=== PATIENT | female | born 1965 | race Caucasian/White ===

== ENCOUNTER → 2019-01-26 | Outpatient (CLI) | payer BC ==
--- NOTE | 2019-01-26 09:42 | CT ---
EXAMINATION TYPE: CT abdomen pelvis w con DATE OF EXAM: 01/26/2019 COMPARISON: NONE HISTORY: 53-year-old female LLQ pain and lump TECHNIQUE: Contiguous axial scanning of the abdomen and pelvis following administration of 100 ml Iso kaylyn 300 IV contrast. Delayed images through the kidneys and coronal/sagittal reconstructions perform ed. CT DLP: 872.1 mGycm Automated exposure control for dose reduction was used. FINDINGS: Heart normal size without pericardial effusion. Some mild strandy atelectasis in the lower lungs. Liver borderline enlarged at 17.6 cm. There is a lesion within segment 2 of the left lower lobe that shows nodular enhancement measuring 2.2 cm. Delayed images show filling with enhancement following ga dolinium blood pool. Small amount of focal fat along the anterior falciform ligament. No biliary ductal dilatation. Portal venous system is patent. Gallbladder, adrenal glands, and pancreas appear within normal limits. Calcified granulomas within the spleen. Tiny inferior splenule. Extra renal pelvis on the left. Duplex right renal collecting systems. 2 separate ureters remained to the mid ureteric level. Unable to determine if these join to gather or have separate insertions into the bladder. No dilated small bowel, free fluid, or free air. No mesenteric or retroperitoneal lymphadenopathy. Normal appendix. Oral contrast progressed to the rectum. Sigmoid diverticulosis. No pericolonic infla mmatory change. Bladder partially distended. Uterus is anteverted. Both ovaries are visualized. No abnormal fluid col lection in the pelvis or pelvic lymphadenopathy. Bones: Degenerative change at the left greater than right SI joints. Degenerative disc disease L5-S1. IMPRESSION: 1. Sigmoid diverticulosis without evidence for acute diverticulitis. 2. A 2.2 cm lesion within segment 2 left liver lobe shows peripheral nodular enhancement and fill in on delayed kidney images. Findings most compatible with a benign hemangioma. 3. Incidental duplex right renal collecting system. Unable to determine partial or complete duplicati on.
== END | disposition home or self-care (01) ==
LOC: RADCTMAIN 05:58
PROVIDERS: ATTEND Family Medicine
DX: K57.30 Diverticulosis of large intestine without perforation or abscess without bleeding (principal); K76.89 Other specified diseases of liver; K76.9 Liver disease, unspecified
CPT/HCPCS: 74177; Q9967 ×2

== ENCOUNTER → 2019-04-12 | Outpatient (CLI) | payer BC ==
--- NOTE | 2019-04-12 16:22 | US ---
EXAMINATION TYPE: US pelvic complete DATE OF EXAM: 04/12/2019 COMPARISON: NONE CLINICAL HISTORY: 53-year-old female N94.10 Unspecified dyspareunia. TECHNIQUE: Transabdominal (TA). Date of LMP: 4-5 years prior Patient not an any HRT. FINDINGS: EXAM MEASUREMENTS: Uterus: 6.9 x 3.2 x 3.5 cm Endometrial Stripe: 0.4 cm Right Ovary: 1.5 x 0.9 x 1.0 cm Left Ovary: 1.8 x 1.0 x 1.0 cm 1. Uterus: Anteverted, wnl 2. Endometrium: wnl 3. Right Ovary: wnl 4. Left Ovary: wnl 5. Bilateral Adnexa: wnl 6. Posterior cul-de-sac: wnl IMPRESSION: Unremarkable transabdominal sonographic examination of the pelvis.
== END | disposition home or self-care (01) ==
LOC: RADUSWWP 14:00
PROVIDERS: ATTEND Obstetrics & Gynecology
DX: N94.10 Unspecified dyspareunia (principal)
CPT/HCPCS: 76856

== ENCOUNTER → 2019-04-14 | Outpatient (CLI) | payer BC ==
--- NOTE | 2019-04-14 11:32 | XR ---
EXAMINATION TYPE: XR lumbar spine 2 or 3V DATE OF EXAM: 04/14/2019 COMPARISON: None HISTORY: Lumbar spine pain TECHNIQUE: Three-view lumbar spine FINDINGS: There 5 lumbar-type vertebral bodies. The pedicles are intact. There is loss of disc height L5-S1. Remaining disc heights are preserved. Vertebral body heights are preserved. Alignment is pres erved. IMPRESSION: 1. Degenerative disc changes L5-S1.
== END ==
LOC: RADXRMAIN 11:07
PROVIDERS: ATTEND Family Medicine
DX: M47.817 Spondylosis without myelopathy or radiculopathy, lumbosacral region (principal)
CPT/HCPCS: 72100

== ENCOUNTER 2021-03-23 12:17 | Emergency (ER) | payer BC ==
[2021-03-23 12:35] VITALS: TEMP 97.8
[2021-03-23] MEDS ORDERED: ASPIRIN 81 MG PO STA (12:52)
--- NOTE | 2021-03-23 13:05 | ED ---
General Adult HPI - General Chief complaint: Chest Pain Stated complaint: High BP, chest pain Time Seen by Provider: 03/23/21 12:40 Source: patient, RN notes reviewed, old records reviewed Mode of arrival: wheelchair Limitations: physical limitation - History of Present Illness Initial comments: Patient is a 55-year-old female with past medical history remarkable for hypertension, currently on hormonal therapy for menopausal presents emergency Department complaining of sudden onset chest pain at approximately 11 AM today. Is currently approximately 12:40pm. I evaluated her when she was placed in a room. She states the pain was sharp, started substernally and radiated across left side of her chest. Last for approximately 10-15 minutes while she was sitting and working a computer. She states it resolved on its own. No known palliative or provocative factors. States she felt nauseous at the time as well and checked her blood pressure and found it was elevated. That is since improved. Only complaints is endorsing shortness of breath that is been getting slightly worse and over the last few weeks to months. She notices shortness of breath on exertion. Denies any associated chest pain with it. States she did have this chest pain previously she believes last year when she was worked up and cardiac workup at that time was negative. She denies any fevers, chills, cough. Patient was vaccinated and booster for Covid 19. 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 Presents over concern for chest pain. - Related Data Home Medications Medication Instructions Recorded Confirmed Aspirin EC [Ecotrin Low Dose] 81 mg PO DAILY 03/23/21 03/23/21 Calcium Carbonate [Calcium] 600 mg PO DAILY 03/23/21 03/23/21 Cholecalciferol [Vitamin D3 (125 125 mcg PO DAILY 03/23/21 03/23/21 Mcg = 5000 Iu)] Multivitamins, Thera [Multivitamin 1 tab PO DAILY 03/23/21 03/23/21 (formulary)] Testosterone 0.25mg/Biest 1 kelly SL DAILY 03/23/21 03/23/21 1.25mg/Progesterone 20mg Kelly Allergies Allergy/AdvReac Type Severity Reaction Status Date / Time No Known Allergies Allergy Verified 03/23/21 13:59 Review of Systems ROS Statement: Those systems with pertinent positive or pertinent negative responses have been documented in the HPI. Review of Systems: CONST: Denies fever EYES: Denies blurry vision ENT: Denies nasal congestion C/V: Endorses result chest pain. RESP: Endorses somewhat chronic exertional shortness of breath GI: Denies abdominal pain : Denies dysuria SKIN: Denies rash. MSK: Denies joint pain. NEURO: Denies headache ROS Other: All systems not noted in ROS Statement are negative. Past Medical History Additional Past Medical History / Comment(s): hormone therapy for menopause History of Any Multi-Drug Resistant Organisms: None Reported Past Surgical History: Section Past Psychological History: No Psychological Hx Reported Smoking Status: Never smoker Past Alcohol Use History: Occasional Past Drug Use History: None Reported General Exam - General Exam Comments Initial Comments: General: Appears in no acute distress. HEAD: Normal with no signs of head trauma. EYES: PERRLA, EOMI, conjunctiva normal, no discharge. ENT: Hearing grossly intact, normal oropharynx. RESPIRATORY: Clear breath sounds bilaterally. No wheezes, rales, or rhonchi. C/V: Regular rate and rhythm. S1 and S2 auscultated, no edema, peripheral pulses 2+ and intact throughout ABD: Abd is soft, nontender, nondistended EXT: Normal range of motion, no obvious deformity SKIN: No rashes or lesions observed on exposed skin. NEURO: Alert and oriented 4. Limitations: physical limitation Course Vital Signs 03/23/21 12:32 Temperature 97.8 F Pulse Rate 76 Respiratory 18 Rate Blood Pressure 158/93 O2 Sat by Pulse 98 Oximetry Medical Decision Making - Medical Decision Making Based on the patient's presentation and physical exam, I'm concerned for acute cardiopulmonary etiology for her current chest pain. Therefore we will obtain cardiac workup including troponin, BNP and basic labs. EKG and chest x-ray will also be obtained. She'll be given an aspirin. Chest pain is currently resolved. We will obtain a screening d-dimer she is on hormonal therapy with SOB and Chest pain. Patient does not PERC out, well's score for PE is low at 0. EKG showed no signs of acute ischemia. Chest x-ray showed no acute cardiopulmonary process. Laboratory studies were remarkable for a d-dimer within normal limits at 0.53, negative troponin. Remainder of the labs are unremarkable. On reevaluation, patient is asymptomatic. I did discuss with her admission versus discharge home and she would like to go home if possible. As the chest pain started within the last 3 hours, we will hold the patient the emergency department and obtained a repeat troponin 3 hours after the initial. She was in agreement this plan. Repeat troponin is within normal limits. Vision remains symptomatic. Vital signs remained within normal limits and stable. She'll be discharged home at this time. She was in agreement this plan. Recommended follow-up with cardiology as well as her PCP. She was in agreement this plan. Heart score is low at 2. I instructed the patient to follow up with their PCP in the next 3 days. I explained that the patient should return to the emergency department if they experience any worsening symptoms. Strict return precautions were discussed with the patient. The patient expressed understanding of these instructions. I answered all questions that the patient had. The patient was discharged home in good condition with their prescriptions and follow up information. - Lab Data Result diagrams: 03/23/21 13:04 03/23/21 13:04 Lab Results 03/23/21 03/23/21 03/23/21 Range/Units 13:04 13:04 13:04 WBC 8.1 (3.8-10.6) k/uL RBC 4.60 (3.80-5.40) m/uL Hgb 14.4 (11.4-16.0) gm/dL Hct 42.5 (34.0-46.0) % MCV 92.2 (80.0-100.0) fL MCH 31.2 (25.0-35.0) pg MCHC 33.9 (31.0-37.0) g/dL RDW 12.8 (11.5-15.5) % Plt Count 369 (150-450) k/uL MPV 6.7 Neutrophils % 73 % Lymphocytes % 19 % Monocytes % 4 % Eosinophils % 1 % Basophils % 0 % Neutrophils # 5.9 (1.3-7.7) k/uL Lymphocytes # 1.6 (1.0-4.8) k/uL Monocytes # 0.3 (0-1.0) k/uL Eosinophils # 0.1 (0-0.7) k/uL Basophils # 0.0 (0-0.2) k/uL PT 11.1 (9.0-12.0) sec INR 1.0 (<1.2) APTT 26.0 (22.0-30.0) sec D-Dimer 0.53 (<0.60) mg/L FEU Sodium 137 (137-145) mmol/L Potassium 4.0 (3.5-5.1) mmol/L Chloride 101 (98-107) mmol/L Carbon Dioxide 27 (22-30) mmol/L Anion Gap 9 mmol/L BUN 17 (7-17) mg/dL Creatinine 0.75 (0.52-1.04) mg/dL Est GFR (CKD-EPI)AfAm >90 (>60 ml/min/1.73 sqM) Est GFR (CKD-EPI)NonAf >90 (>60 ml/min/1.73 sqM) Glucose 88 (74-99) mg/dL Calcium 10.2 (8.4-10.2) mg/dL Magnesium 2.1 (1.6-2.3) mg/dL Total Bilirubin 0.7 (0.2-1.3) mg/dL AST 16 (14-36) U/L ALT 22 (4-34) U/L Alkaline Phosphatase 74 (38-126) U/L Troponin I (0.000-0.034) ng/mL NT-Pro-B Natriuret Pep pg/mL Total Protein 7.9 (6.3-8.2) g/dL Albumin 4.8 (3.5-5.0) g/dL 03/23/21 03/23/21 03/23/21 Range/Units 13:04 13:04 16:40 WBC (3.8-10.6) k/uL RBC (3.80-5.40) m/uL Hgb (11.4-16.0) gm/dL Hct (34.0-46.0) % MCV (80.0-100.0) fL MCH (25.0-35.0) pg MCHC (31.0-37.0) g/dL RDW (11.5-15.5) % Plt Count (150-450) k/uL MPV Neutrophils % % Lymphocytes % % Monocytes % % Eosinophils % % Basophils % % Neutrophils # (1.3-7.7) k/uL Lymphocytes # (1.0-4.8) k/uL Monocytes # (0-1.0) k/uL Eosinophils # (0-0.7) k/uL Basophils # (0-0.2) k/uL PT (9.0-12.0) sec INR (<1.2) APTT (22.0-30.0) sec D-Dimer (<0.60) mg/L FEU Sodium (137-145) mmol/L Potassium (3.5-5.1) mmol/L Chloride (98-107) mmol/L Carbon Dioxide (22-30) mmol/L Anion Gap mmol/L BUN (7-17) mg/dL Creatinine (0.52-1.04) mg/dL Est GFR (CKD-EPI)AfAm (>60 ml/min/1.73 sqM) Est GFR (CKD-EPI)NonAf (>60 ml/min/1.73 sqM) Glucose (74-99) mg/dL Calcium (8.4-10.2) mg/dL Magnesium (1.6-2.3) mg/dL Total Bilirubin (0.2-1.3) mg/dL AST (14-36) U/L ALT (4-34) U/L Alkaline Phosphatase (38-126) U/L Troponin I <0.012 <0.012 (0.000-0.034) ng/mL NT-Pro-B Natriuret Pep 54 pg/mL Total Protein (6.3-8.2) g/dL Albumin (3.5-5.0) g/dL - EKG Data -: EKG Interpreted by Me EKG Comments: 12-lead Electrocardiogram Interpretation Note EKG was reviewed and interpreted by myself. 12-lead ECG performed at 1241 is interpreted by me as revealing normal sinus rhythm at a rate of 66 beats per minute. [place] is normal. DC interval is 170 ms, QRS duration is 84 ms, QTc is 425 ms. There is an isolated T-wave inversion in lead V6.. There were no ST or T wave abnormalities to suggest myocardial ischemia or injury. R wave progression across the precordium was satisfactory. By my interpretation this EKG is non-diagnostic for acute ischemia. Disposition Clinical Impression: Chest pain of unknown etiology Disposition: HOME SELF-CARE Condition: Good Instructions (If sedation given, give patient instructions): Chest Pain (ED) Is patient prescribed a controlled substance at d/c from ED?: No Referrals: Mike Cerda MD [Primary Care Provider] - 1-2 days
[2021-03-23 13:17] LABS: Basophils % (A) 0 %; Eosinophils # (A) 0.1 k/uL (0-0.7); Eosinophils % (A) 1 %; HCT 42.5 % (34.0-46.0); HGB 14.4 gm/dL (11.4-16.0); Lymphocytes # (A) 1.6 k/uL (1.0-4.8); Lymphocytes % (A) 19 %; MCH 31.2 pg (25.0-35.0); MCHC 33.9 g/dL (31.0-37.0); MCV 92.2 fL (80.0-100.0); Mean Platelet Volume 6.7; Monocytes # (A) 0.3 k/uL (0-1.0); Monocytes % (A) 4 %; Neutrophils # (A) 5.9 k/uL (1.3-7.7); Neutrophils % (A) 73 %; Platelet Count 369 k/uL (150-450); RDW 12.8 % (11.5-15.5); WBC 8.1 k/uL (3.8-10.6)
--- NOTE | 2021-03-23 13:24 | XR ---
EXAMINATION TYPE: XR chest 2V DATE OF EXAM: 03/23/2021 COMPARISON: None INDICATION: Chest pain TECHNIQUE: Frontal and lateral views of the chest are obtained. FINDINGS: The heart size is normal. The pulmonary vasculature is normal. The lungs are clear. IMPRESSION: 1. No acute pulmonary process.
[2021-03-23 13:38] LABS: ALT 22 U/L (4-34); AST 16 U/L (14-36); African American GFR (CKD) >90 (>60 ml/min/1.73 sqM); Albumin 4.8 g/dL (3.5-5.0); Alkaline Phosphatase 74 U/L (38-126); Anion Gap 9 mmol/L; Blood Urea Nitrogen 17 mg/dL (7-17); Calcium 10.2 mg/dL (8.4-10.2); Carbon Dioxide 27 mmol/L (22-30); Chloride 101 mmol/L (98-107); Glucose 88 mg/dL (74-99); Magnesium 2.1 mg/dL (1.6-2.3); Non-African American GFR(CKD) >90 (>60 ml/min/1.73 sqM); Sodium 137 mmol/L (137-145); Total Bilirubin 0.7 mg/dL (0.2-1.3); Total Protein 7.9 g/dL (6.3-8.2)
[2021-03-23 13:51] LABS: Prothrombin Time 11.1 sec (9.0-12.0)
[2021-03-23] MEDS ORDERED: KETOROLAC 15 MG/ML 1 ML VIAL IVP STA (15:49)
[2021-03-23 17:43] VITALS: BP 124/74; PULSE 69; RESP 20
== END 2021-03-23 17:44 | disposition home or self-care (01) ==
LOC: EC 12:17
DX: R07.9 Chest pain, unspecified (principal); I10 Essential (primary) hypertension; Z79.82 Long term (current) use of aspirin; Z72.89 Other problems related to lifestyle
CPT/HCPCS: 36415; 71046; 80053; 83735; 83880; 84484; 85025; 85379; 85610; 85730; 93005; 96374; 99285

== ENCOUNTER → 2023-05-09 | Outpatient (CLI) | payer BC ==
[2023-05-09 15:29] LABS: Basophils # (A) 0.04 X 10*3/uL (0.00-0.10); Basophils % (A) 0.5 %; Eosinophils # (A) 0.08 X 10*3/uL (0.04-0.35); HCT 41.3 % (37.2-46.3); HGB 13.7 g/dL (12.0-15.0); MCH 30.4 pg (27.0-32.0); MCHC 33.2 g/dL (32.0-37.0); MCV 91.6 FL (80.0-97.0); Mean Platelet Volume 9.5 FL (9.5-12.2); Monocytes # (A) 0.44 X 10*3/uL (0.20-1.00); Monocytes % (A) 5.4 %; NRBC Per 100 WBC 0 X 10*3/uL (0.00-0.01); Platelet Count 316 X 10*3/uL (140-440); RBC 4.51 X 10*6/uL (4.10-5.20); RDW 12.7 % (11.5-14.5); WBC 8.17 X 10*3/uL (4.50-10.00)
[2023-05-09 16:02] LABS: Calcium 9.6 mg/dL (8.7-10.3); Chol/HDL Ratio 3.54 Ratio; Glucose 85 mg/dL (70-110); LDL Cholesterol,Calculated 139.9 mg/dL (0.0-131.0); T4, Free (Free Thyroxine) 1.26 ng/dL (0.80-1.80)
== END | disposition home or self-care (01) ==
LOC: LABWHC1 09:21
PROVIDERS: ATTEND Internal Medicine
DX: E55.9 Vitamin D deficiency, unspecified (principal); R53.81 Other malaise; R63.5 Abnormal weight gain
CPT/HCPCS: 36415; 80061; 82306; 82310; 82947; 83036; 83525; 84439; 84443; 84481; 85025

== ENCOUNTER → 2023-05-30 | Outpatient (CLI) | payer BC ==
--- NOTE | 2023-06-02 15:26 | BD ---
EXAMINATION TYPE: Axial Bone Density DATE OF EXAM: 05/30/2023 CLINICAL HISTORY: 57 years old Female. ICD-10 CODE: N951 [employer] Height: 61.1 Weight: 178 FRAX RISK QUESTIONS: Family History (Parent hip fracture): yes 3. Menopause before 45: no at 49 RISK FACTORS HISTORY OF: nothing here. MEDICATIONS: vit d EXAM MEASUREMENTS: Bone mineral densitometry was performed using the [employer] System. Bone mineral density as measured about the Lumbar spine is: ----- L1-L4(G/cm2): 1.122 T Score Values are as follows: ----- L1: -0.6 ----- L2: -0.5 ----- L3: 0.1 ----- L4: -1.1 ----- L1-L4: -0.5 Z Score Values are as follows: ----- L1: -0.2 ----- L2: -0.1 ----- L3: 0.6 ----- L4: -0.6 ----- L1-L4: 0.0 Bone mineral density is her first at [facility]. Bone mineral density about the R hip (g/cm2): 0.893 Bone mineral density about the L hip (g/cm2): 0.887 T Score values are as follows: -----R Neck: -1.4 -----L Neck: -1.2 -----R Total: -0.9 -----L Total: -1.0 Z Score values are as follows: -----R Neck: -0.6 -----L Neck: -0.4 -----R Total: -0.5 -----L Total: -0.6 Bone mineral density is the first at [facility]. FRAX%s: The graph provided illustrates a 10.6% chance for a major osteoporotic fx and a 0.8% chance f or the hips probability for fx in 10 years time. IMPRESSION: Normal (Values between +1 and -1 indicate normal bone mass). Consider repeating this study in 5 year s or sooner if there is some new clinical indication. NOTE: T-SCORE=SD OF THE YOUNG ADULT MEAN.
== END | disposition home or self-care (01) ==
LOC: RADMAMWWP 12:54
PROVIDERS: ATTEND Obstetrics & Gynecology
DX: Z12.31 Encounter for screening mammogram for malignant neoplasm of breast (principal); M85.89 Other specified disorders of bone density and structure, multiple sites; Z78.0 Asymptomatic menopausal state
CPT/HCPCS: 77063; 77067; 77080

== ENCOUNTER → 2024-08-12 | Outpatient (CLI) | payer BC ==
--- NOTE | 2024-08-12 15:02 | MM ---
Reason for Exam: Screening (asymptomatic). Last mammogram was performed 1 year(s) and 2 month(s) ago. Patient History: Menarche at age 13. First Full-Term at age 20. Postmenopausal. 2002, Bilateral Implants. Risk Values: Sofya 5 year model risk: 1.2%. NCI Lifetime model risk: 6.9%. Prior Study Comparison: 04/20/2020 Bilateral Screening Mammogram, [facility] . 04/26/2021 Bilateral Screening Mammogram, [facility] . 05/30/2023 Bilateral MG 3D screen mammo imp/cad., [facility]. Tissue Density: There are scattered areas of fibroglandular density. Findings: Analyzed By CAD. Redemonstrated bilateral retropectoral saline implants. There is no suspicious group of microcalcifications or new suspicious mass in either breast. Overall Assessment: Negative, BI-RAD 1 Management: Screening Mammogram of both breasts in 1 year. Patient should continue monthly self-breast exams. A clinical breast exam by your physician is recommended on an annual basis. This exam should not preclude additional follow-up of suspicious palpable abnormalities. Note on Sofya scores and lifetime risk: 1. A Sofya score greater than 3% is considered moderate risk. If this is the case, consider specialist referral to assess eligibility for a risk reducing agent. 2. If overall lifetime risk for the development of breast cancer is 20% or higher, the patient may qualify for future screening with alternating mammogram and breast MRI. [facility], , 08/12/2024 2:58 PM. Electronically signed and approved by: Ceasar Chavez M.D. Radiologist
== END | disposition home or self-care (01) ==
LOC: RADMAMWWP 13:03
PROVIDERS: ATTEND Obstetrics & Gynecology
DX: Z12.31 Encounter for screening mammogram for malignant neoplasm of breast (principal); R92.323 Mammographic fibroglandular density, bilateral breasts; Z78.0 Asymptomatic menopausal state; Z98.82 Breast implant status
CPT/HCPCS: 77063; 77067